=== PATIENT | female | born 1970 | race Caucasian/White ===

== ENCOUNTER 2016-09-28 19:03 | Emergency (ER) | payer OTHER ==
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
[2016-09-28 20:48] VITALS: BP 123/73
--- NOTE | 2016-09-28 21:20 | CT SCAN REPORT ---
EXAMINATION: CT LUMBAR SPINE WITHOUT CONTRAST CLINICAL INFORMATION: Fall. Back pain. COMPARISON: None TECHNIQUE: Helical non-contrast CT images were obtained through the lumbar spine and 1.25 and 2.5 mm axial reconstructions were reviewed along with sagittal and coronal MPRs. DLP: 1036 mGy-cm FINDINGS: There are fractures of the left L2, L3, and L4 transverse processes. No compression fractures or subluxations are seen. No additional fractures are identified. Regional soft tissue swelling is noted at the site of the fractures. Mild posterior disc bulges are noted at L4-L5 and L5-S1. There is no central canal stenosis or foraminal narrowing. No significant facet arthropathy is seen. There are mild degenerative changes of the SI joints with vacuum phenomenon. IMPRESSION: Fractures through the left L2, L3, and L4 transverse processes.
[2016-09-28] MEDS ORDERED: PERCOCET 5-3251 EACH PO (21:56)
== END 2016-09-28 22:28 ==
LOC: ERH 19:03
DX: S32.009A Unspecified fracture of unspecified lumbar vertebra, initial encounter for closed fracture (principal); W19.XXXA Unspecified fall, initial encounter
CPT/HCPCS: 96372